=== PATIENT | male | born 1990 | race Hispanic/Latino ===

== ENCOUNTER 2024-11-09 18:19 | Emergency (ER) | payer SELFPAY ==
[2024-11-09 18:20] VITALS: BP 138/97; BMI 32.1
[2024-11-09] MEDS: AUGMENTIN 875 MG/125 MG 1 TABLET PO (18:33)
[2024-11-09] MEDS: ADACEL 0.5 ML IM (18:33)
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
== END 2024-11-09 18:56 ==
LOC: EMR 18:19
PROVIDERS: EMERGENCY PHYSICIAN Emergency Medicine
DX: S41.101A Unspecified open wound of right upper arm, initial encounter (principal); Y04.1XXA Assault by human bite, initial encounter; Z23 Encounter for immunization
CPT/HCPCS: 99282; 90471; 90715